=== PATIENT | male | born 1980 ===

== ENCOUNTER 2018-07-27 11:47 | Outpatient (CLI) | payer OTHER ==
[~2018-07-27] VITALS: Ht 193 cm; Wt 86.2 kg
== END 2018-07-27 12:10 | disposition home or self-care (01) ==
LOC: OFIC 805 11:47
DX: H61.23 Impacted cerumen, bilateral (principal); H91.8X2 Other specified hearing loss, left ear

== ENCOUNTER 2020-06-09 14:50 | Outpatient (CLI) | payer OTHER | END 2020-06-09 15:57 | disposition home or self-care (01) | LOC: OFIC 805 14:50 | PROVIDERS: ATTEND Otolaryngology Otology & Neurotology | DX: J32.1 Chronic frontal sinusitis (principal) ==

== ENCOUNTER 2021-05-03 19:05 | Emergency (ER) | payer OTHER ==
[~2021-05-03] VITALS: Ht 193 cm; Wt 90.7 kg
== END 2021-05-03 23:05 | disposition home or self-care (01) ==
LOC: ER 19:05
DX: S69.92XA Unspecified injury of left wrist, hand and finger(s), initial encounter (principal); W20.8XXA Other cause of strike by thrown, projected or falling object, initial encounter; Y93.89 Activity, other specified; Y92.9 Unspecified place or not applicable; M25.572 Pain in left ankle and joints of left foot